=== PATIENT | female | born 2005 | race Caucasian/White ===

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

== ENCOUNTER 2023-05-03 13:47 | Inpatient (IN) | payer OTHER ==
[2023-05-03] MEDS: ELECTROLYTE-148 SOLN 1,000 ML IV SCH (14:00)
[2023-05-03 15:10] VITALS: BMI 32.8
[2023-05-03] MEDS: DINOPROSTONE 10 MG VAGINAL SUPPOSITORY VG ONE (16:05)
[2023-05-03 17:32] LABS: BASO % 0.3 % (0-2.0); EOS % 0.5 % (0-4.5); HEMATOCRIT 38.7 % (32.4-45.2); HEMOGLOBIN 13.2 GM/dL (10.7-15.3); LYMPH % 25.6 % (8-40); MCH 30.3 pg (25.7-33.7); MCHC 34.2 g/dl (32.0-36.0); MEAN CELL VOLUME 88.5 fl (80-96); MEAN PLT VOLUME 11.4 fl (7.5-11.1); MONO % 8.7 % (3.8-10.2); NEUT % 64.9 % (42.8-82.8); PLATELET COUNT 175 10^3/uL (134-434); RBC 4.37 M/mm3 (3.60-5.2); WHITE BLOOD COUNT 13.5 K/mm3 (4.0-10.0)
[2023-05-03 17:36] LABS: INR 0.96 (0.83-1.09); PROTHROMBIN TIME (PATIENT) 11.1 SEC (9.7-13.0)
[2023-05-03 17:39] LABS: ACTIVATED PTT 25.8 SECONDS (25.2-36.5)
[2023-05-03 17:53] LABS: POTASSIUM 4.3 mmol/L (3.5-5.1)
[2023-05-03 17:54] LABS: CALCIUM 8.4 mg/dL (8.5-10.1)
[2023-05-03 17:55] LABS: BLOOD UREA NITROGEN 8.6 mg/dL (7-18)
[2023-05-03 17:58] LABS: CREATININE 0.9 mg/dL (0.55-1.3)
[2023-05-03 18:49] LABS: HIV INTERPRETATION NEGATIVE (NEGATIVE)
[2023-05-03] MEDS ORDERED: PROMETHAZINE HCL 25 MG/1 ML VIAL ONE (20:20)
[2023-05-03] MEDS ORDERED: BUTORPHANOL TARTRATE 2 MG/ML VIAL ONE (20:20)
[2023-05-03] MEDS: BUTORPHANOL TARTRATE 1 MG/ML VIAL IVPB PRN (20:29)
[2023-05-03] MEDS: PROMETHAZINE HCL 25 MG/1 ML VIAL IVPB ONE (20:30)
[2023-05-03] MEDS ORDERED: OXYTOCIN 30 UNITS in 0.9% NS 30 UNIT/500 ML INFUS.BAG IVPB ONE (21:39)
[2023-05-03] MEDS: OXYTOCIN 30 UNITS in 0.9% NS 30 UNIT/500 ML INFUS.BAG IVPB SCH (21:45)
[2023-05-04] MEDS ORDERED: FENTANYL/BUPIVACAINE/NS/PF - PCEA - 50 ML DISP.SYRIN EP ONE (03:30)
[2023-05-04] MEDS ORDERED: LIDO 2%/EPI 1:200000 PRESRVFRE (20 ML SDVIAL) ONE (03:42)
[2023-05-04] MEDS ORDERED: BUPIVACAINE HCL/PF 0.25% (2.5MG/ML) 10 ML VIAL ONE (03:42)
[2023-05-04] MEDS: FENTANYL/BUPIVACAINE/NS/PF - PCEA - 50 ML DISP.SYRIN EP SCH (04:05)
[2023-05-04] MEDS ORDERED: NALOXONE HCL 0.4 MG/ML VIAL IVPUSH PRN (04:11)
[2023-05-04] MEDS ORDERED: FENTANYL CITRATE/PF 50 MCG/ML VIAL ONE (04:32)
[2023-05-04] MEDS ORDERED: ceFAZolin SODIUM 1 GM VIAL ONE (05:30)
[2023-05-04] MEDS ORDERED: OXYTOCIN 10 UNITS/ML VIAL ONE (05:40)
[2023-05-04] MEDS ORDERED: morphine SULFATE/PF 1 MG/2 ML (2cc Syringe - QUVA) ONE (05:45)
[2023-05-04] MEDS ORDERED: BENZOCAINE 20% 57 GM BOTTLE TP PRN (06:11)
[2023-05-04] MEDS ORDERED: METHYLERGONOVINE MALEATE 0.2 MG/1 ML AMP IM PRN (06:11)
[2023-05-04] MEDS ORDERED: BENZOCAINE 28 GM HEMORRHOIDAL OINTMENT TP PRN (06:11)
[2023-05-04] MEDS ORDERED: WITCH HAZEL 50% (TUCKS) 40 PAD/JAR PAD TP PRN (06:11)
[2023-05-04] MEDS: OXYTOCIN 20 UNITS in 0.9% NS 20 UNIT/1,000 ML INFUS.BAG IV SCH (06:45)
[2023-05-04] MEDS ORDERED: OXYTOCIN 20 UNITS in 0.9% NS 20 UNIT/1,000 ML INFUS.BAG IV ONE (06:53)
[2023-05-04] MEDS ORDERED: IBUPROFEN 800 MG/8 ML IJ IVPB ONE (07:56)
[2023-05-04] MEDS: IBUPROFEN 800 MG/8 ML IJ IVPB SCH (08:00)
[2023-05-04 09:05] LABS: CORD BASE EXCESS -10.8 mmol/L (0-2); CORD HCO3 19.8 mmHg (20-29); CORD PCO2 61.9 mmHg (30-78); CORD pH 7.122 (7.14-7.44)
[2023-05-04 09:09] LABS: CORD BASE EXCESS -13.2 mmol/L (0-2); CORD HCO3 14.8 mmHg (20-29); CORD PCO2 41.2 mmHg (30-78); CORD pH 7.172 (7.14-7.44)
[2023-05-04] MEDS ORDERED: oxyCODONE HCL 5 MG TABLET PO PRN ×2 (18:12)
[2023-05-04] MEDS: SIMETHICONE 80 MG TAB.CHEW (FP) PO PRN (21:18)
[2023-05-05] MEDS ORDERED: BISACODYL 10 MG SUPP.RECT RC PRN (06:12)
[2023-05-05] MEDS: ACETAMINOPHEN 325 MG TABLET (FP) PO PRN (08:08)
[2023-05-05 09:13] LABS: BASO % 0.6 % (0-2.0); EOS % 0.1 % (0-4.5); HEMATOCRIT 36.8 % (32.4-45.2); HEMOGLOBIN 12.1 GM/dL (10.7-15.3); LYMPH % 32.7 % (8-40); MCH 30.1 pg (25.7-33.7); MEAN CELL VOLUME 91.1 fl (80-96); MEAN PLT VOLUME 11.5 fl (7.5-11.1); MONO % 6.5 % (3.8-10.2); NEUT % 60.1 % (42.8-82.8); PLATELET COUNT 166 10^3/uL (134-434); RBC 4.04 M/mm3 (3.60-5.2); RDW 15.8 % (11.6-15.6)
[2023-05-05] MEDS: FERROUS SO4 325 MG TABLET (FP) PO SCH (09:33)
[2023-05-05] MEDS: PRENATAL VITAMINS W/ FOLIC ACID TABLET (FP) PO SCH (09:33)
[2023-05-05 10:31] LABS: ANISOCYTOSIS 1+; MACROCYTOSIS 0
[2023-05-05] MEDS: IBUPROFEN 600 MG TABLET (FP) PO PRN (15:04)
[2023-05-07 06:41] LABS: BASO % 0.4 % (0-2.0); EOS % 1.9 % (0-4.5); HEMATOCRIT 34.2 % (32.4-45.2); HEMOGLOBIN 11.3 GM/dL (10.7-15.3); LYMPH % 31.3 % (8-40); MCH 30.1 pg (25.7-33.7); MCHC 33.1 g/dl (32.0-36.0); MEAN CELL VOLUME 90.8 fl (80-96); MONO % 8.1 % (3.8-10.2); NEUT % 58.3 % (42.8-82.8); PLATELET COUNT 182 10^3/uL (134-434); RBC 3.77 M/mm3 (3.60-5.2); RDW 15.6 % (11.6-15.6)
[2023-05-07 10:42] VITALS: BP 117/79; PULSE 89; RESP 16; TEMP 97.8
== END 2023-05-07 13:50 | disposition home or self-care (01) | DRG 540 ==
LOC: JLDR 13:47 → J3W 05-04 08:45
PROVIDERS: ADMIT Obstetrics & Gynecology; ATTEND Obstetrics & Gynecology
PROC: 10D00Z1 Extraction of Products of Conception, Low, Open Approach (ICD-10-PCS; principal; 2023-05-04)
DX: O36.5930 Maternal care for other known or suspected poor fetal growth, third trimester, not applicable or unspecified (principal); O76 Abnormality in fetal heart rate and rhythm complicating labor and delivery; Z3A.37 37 weeks gestation of pregnancy; Z37.0 Single live birth
CPT/HCPCS: 36415; 36600; 80048; 82803; 85025; 85610; 85730; 86780; 86850; 86900; 86901; 87389; 88307-TC; 94010